=== PATIENT | female | born 1995 | race Caucasian/White ===

== ENCOUNTER 2023-07-19 20:39 | Inpatient (IN) | payer BC, SELFPAY ==
[2023-07-19] VITALS (7 sets, daily range): BP systolic 107–137; BP diastolic 61–94; PULSE 71–81; BMI 23.2
[2023-07-19 12:36] LABS: % Basophils 0.1 % (0-2); % Immature Granulocytes 0.1 % (0-0.5); % Lymphocytes 16.1 % (20.5-51.1); % Monocytes 5.1 % (1.7-9.3); % Neutrophils 78.6 % (42.2-75.2); Absolute Lymphocytes 1.3 10^3/uL (1.2-3.4); Absolute Monocytes 0.4 10^3/uL (0.1-0.6); Absolute Neutrophils 6.1 10^3/uL (1.4-6.5); Hematocrit 39.3 % (37.0-47.0); Hemoglobin 13.5 g/dL (12.0-16.0); Mean Corp Hgb Conc. 34.4 g/dL (33.0-37.0); Mean Corpuscular Hgb 29.8 pg (27.0-31.0); Mean Corpuscular Volume 86.8 fL (81.0-99.0); Mean Platelet Volume 10.7 fL (7.4-10.4); Nucleated Red Blood Cells % 0 %; Platelet Count 235 10^3/uL (130-400); Red Blood Cell Count 4.53 10^6/uL (4.20-5.40); Red Cell Dist. Width 12.7 % (11.5-14.5); White Blood Cell Count 7.8 10^3/uL (4.8-10.8)
[2023-07-19 12:47] LABS: ALT (SGPT) 26 U/L (0-35); AST (SGOT) 25 U/L (14-36); Albumin 4.3 g/dl (3.5-5.0); Alkaline Phosphatase 73 U/L (38-126); Blood Urea Nitrogen 10 mg/dl (7-17); Calcium 9.4 mg/dl (8.4-10.2); Carbon Dioxide 28 mmol/L (22-30); Chloride 106 mmol/L (98-107); Glucose 87 mg/dl (70-99); Sodium 138 mmol/L (135-145); Total Bilirubin 0.6 mg/dl (0.2-1.3); Total Protein 7.2 g/dl (6.3-8.2); eGFR > 60.00
[2023-07-19 15:10] LABS: HCG, Serum Qualitative Screen Negative
--- NOTE | 2023-07-19 15:17 | ED.GENMED ---
History of Present Illness
<Shayla Alcocer PA-C - Last Filed: 07/19/23 23:12>
General
Chief Complaint: Fainting/Passed Out
Source: patient
Exam Limitations: none
Time Seen by Provider: 07/19/23 14:56
Nursing documentation reviewed up to this point in time: agreed with
Travel History
Have you had any contact with someone who has COVID-19?: No
Do you have any symptoms of coronavirus? Fever > 100 degrees, chills, cough, shortness of breath, sore throat, loss of taste or smell, muscle aches, or headache?: No
History of Present Illness
History of Present Illness:
The patient is a 27 year old female with history of ADHD, anxiety presenting for evaluation of what she describes as near fainting episodes today. Patient states she was at work around 930 this morning when symptoms began. 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 These episodes have been associated with blurry vision and then prolonged weakness in her extremities following
episode. She denies any preceding chest pain, shortness of breath, nausea, vomiting, diaphoresis. She has had 4 more of these episodes since the first. She has never actually lost consciousness with any of these episodes. She denies any
numbness/tingling of body, stomach pain, cough. She has had no recent viral illnesses. She did have a positive monotest back in March 2023.
Her LMP was 2 weeks ago. No recent travel or surgeries.
She denies any personal or family history of cardiac disorders, seizures.
Past History
<Shayla Alcocer PA-C - Last Filed: 07/19/23 23:12>
Past History
ED Past Medical History: Psychiatric (Anxiety/depression)
ED Past Surgical History: None
Social History
Tobacco: Non-smoker
Alcohol: Occasional
Drug: None
Phy Exam
<Shayla Alcocer PA-C - Last Filed: 07/19/23 23:12>
Physical Exam
Physical Exam:
General: Tired, eyes closed in dark room on initial encounter and non-toxic
Vitals: Vital signs stable, afebrile
HEENT: Atraumatic, normocephalic; pupils equal round and reactive to light, extraocular muscles intact; protecting airway
Neck: appears supple
CV: Regular rate and rhythm, heart sounds normal; No evidence of cyanosis
Resp: No evidence of respiratory distress, lungs clear; no accessory muscle use
Abd: Soft, nontender, non-distended
Extremities: No deformities; weakness in b/l upper and lower extremities; sensation intact
Neuro: alert and oriented to person, place, time; speech normal
Psych: Normal affect
Skin: Intact, no rashes
Course
<Shayla Alcocer PA-C - Last Filed: 07/19/23 23:12>
Orders/Labs/Results
Orders:
Orders
07/19/23 Breakfast
Regular
At Your Request: Full Participation
07/19/23 12:16
Electrocardiogram (*1) Urgent
Reason for Study: Vertigo / Dizzy
07/19/23 12:17
EKG- Treatment ONCE
07/19/23 12:23
Complete Blood Count/With Diff Urgent
Comprehensive Metabolic Panel Urgent
Creatine Phosphokinase Urgent
Comment: CREATININE KINASE ADDED ON BY FLOOR 4PM 07-19-23
Folate Urgent
Comment: ADD ON
HCG, Serum Qualitative Screen Urgent
Comment: ADD ON
Magnesium Urgent
Comment: ADD ON
Phosphorus Urgent
Comment: ADD ON
TSH Reflex To Free T4 Urgent
Comment: ADD ON
Vitamin B12 Urgent
Comment: ADD ON
07/19/23 14:26
Add On- LAB Urgent
Tests Added?: hcg qual
07/19/23 15:35
Orthostatic VS- Treatment ONCE
07/19/23 15:54
0.9% Sodium Chloride 1000 ml [Nss] 1,000 ml IV BOLUS
07/19/23 16:03
Add On- LAB Urgent
Tests Added?: total creatinine kinase
07/19/23 16:26
COVID-19 Antigen Urgent
Source: Nasal Swab
Influenza A+B Rapid Molecular Urgent
WES Source: Nasal Swab
Specimen Description:
07/19/23 17:02
UA Reflex to Culture [Urinalysis Reflex To Culture] Urgent
Date Specimen was Collected: 07/19/23
Time Specimen was Collected: 16:58
Urine Drug Abuse Screen Urgent
Date Specimen was Collected: 07/19/23
Time Specimen was Collected: 16:58
07/19/23 18:04
Consult Neurology [NEUROLOGY CONSULT] Urgent
Consulting Provider: Corrina Hannon
Was physician already notified: Yes
07/19/23 19:58
Add On- LAB Routine
Tests Added?: urine drug screen, TSH w/Reflex, vitamin b12, folate
07/19/23 20:01
Admit/Transfer Patient As Directed
Co-Sign Provider:
Level of Care: Inpatient admission
Assign to:: Telemetry
Physician / Group: Lizbeth
Diagnosis: Hyper-Reflexia
Reason for Telemetry: Syncope
Date to Stop Telemetry: 07/21/23
Time to Stop Telemetry: 11:00
Reason for Hospitalization: Hyper-Reflexia
Expected length of stay greater than two midnights?: Yes
ELOS- Estimated Length of Stay in days: 3
I certify the patient meets the requirements for IP care: Yes
07/19/23 20:05
Code Status As Directed
Resuscitation Status: Full Code
07/19/23 20:21
Add On- LAB Routine
Tests Added?: magnesium, phosphorous
07/19/23 21:27
Acetaminophen [Tylenol] 650 mg PO Q4HPRN PRN
07/19/23 21:27
MR Cervical Spine Without Routine
Comment:
Reason For Exam: hyperreflexia
Recent pill cam endoscopy?: No
MRI Brain [MR Brain Without Contrast] Routine
Comment:
Reason For Exam: hyperreflexia
Recent pill cam endoscopy?: No
Activity As Directed
Activity Level: Out of Bed- Chair
With Assistance
Neurological Checks As Directed
Frequency: q8h
Pneumatic Compression Sleeves As Directed
Type: Knee high
Vital Signs As Directed
Frequency: Per unit guidelines
Ot Eval And Treat Routine
Pt Eval And Treat Routine
Activity Level: Out of Bed-Early Mobility
DX Deep Vein Thrombosis Video Routine
07/19/23 21:30
HydrOXYZINE [Atarax] 25 mg PO HSPRN PRN
07/20/23 08:00
Escitalopram Oxalate [Lexapro] 20 mg PO DAILY
Famotidine [Pepcid] 20 mg PO DAILY
dexmethylphenidate 0 mg PO DAILY
norgestimate-ethinyl estradiol 0 tablet PO DAILY
07/21/23 11:00
DC Protocol for Telemetry ONCE
07/22/23 11:00
DC Protocol for Telemetry ONCE
Abnormal Lab Results
07/19/23
12:23
MPV 10.7 H fL
(7.4-10.4)
Neutrophils % 78.6 H %
(42.2-75.2)
Lymphocytes % 16.1 L %
(20.5-51.1)
Vitamin B12 207 L pg/ml
(632-931)
07/19/23 12:23
07/19/23 12:23
Vital Signs
Initial and Last Documented VS:
Initial Vital Signs
Temp Pulse Resp BP Pulse Ox
98.9 F 93 17 133/81 99
07/19/23 12:16 07/19/23 12:16 07/19/23 12:16 07/19/23 12:16 07/19/23 12:16
Last Documented Vital Signs
Temp Pulse Resp BP Pulse Ox
98.1 F 71 18 129/81 98
07/19/23 21:41 07/19/23 21:41 07/19/23 21:41 07/19/23 21:41 07/19/23 22:21
<Stephany Castellanos MD - Last Filed: 07/19/23 15:58>
Orders/Labs/Results
Orders:
Orders
07/19/23 Breakfast
Regular
At Your Request: Full Participation
07/19/23 12:16
Electrocardiogram (*1) Urgent
Reason for Study: Vertigo / Dizzy
07/19/23 12:17
EKG- Treatment ONCE
07/19/23 12:23
Complete Blood Count/With Diff Urgent
Comprehensive Metabolic Panel Urgent
Creatine Phosphokinase Urgent
Comment: CREATININE KINASE ADDED ON BY FLOOR 4PM 07-19-23
Folate Urgent
Comment: ADD ON
HCG, Serum Qualitative Screen Urgent
Comment: ADD ON
Magnesium Urgent
Comment: ADD ON
Phosphorus Urgent
Comment: ADD ON
TSH Reflex To Free T4 Urgent
Comment: ADD ON
Vitamin B12 Urgent
Comment: ADD ON
07/19/23 14:26
Add On- LAB Urgent
Tests Added?: hcg qual
07/19/23 15:35
Orthostatic VS- Treatment ONCE
07/19/23 15:54
0.9% Sodium Chloride 1000 ml [Nss] 1,000 ml IV BOLUS
07/19/23 16:03
Add On- LAB Urgent
Tests Added?: total creatinine kinase
07/19/23 16:26
COVID-19 Antigen Urgent
Source: Nasal Swab
Influenza A+B Rapid Molecular Urgent
WES Source: Nasal Swab
Specimen Description:
07/19/23 17:02
UA Reflex to Culture [Urinalysis Reflex To Culture] Urgent
Date Specimen was Collected: 07/19/23
Time Specimen was Collected: 16:58
Urine Drug Abuse Screen Urgent
Date Specimen was Collected: 07/19/23
Time Specimen was Collected: 16:58
07/19/23 18:04
Consult Neurology [NEUROLOGY CONSULT] Urgent
Consulting Provider: Corrina Hannon
Was physician already notified: Yes
07/19/23 19:58
Add On- LAB Routine
Tests Added?: urine drug screen, TSH w/Reflex, vitamin b12, folate
07/19/23 20:01
Admit/Transfer Patient As Directed
Co-Sign Provider:
Level of Care: Inpatient admission
Assign to:: Telemetry
Physician / Group: Lizbeth
Diagnosis: Hyper-Reflexia
Reason for Telemetry: Syncope
Date to Stop Telemetry: 07/21/23
Time to Stop Telemetry: 11:00
Reason for Hospitalization: Hyper-Reflexia
Expected length of stay greater than two midnights?: Yes
ELOS- Estimated Length of Stay in days: 3
I certify the patient meets the requirements for IP care: Yes
07/19/23 20:05
Code Status As Directed
Resuscitation Status: Full Code
07/19/23 20:21
Add On- LAB Routine
Tests Added?: magnesium, phosphorous
07/19/23 21:27
Acetaminophen [Tylenol] 650 mg PO Q4HPRN PRN
02/14/24 21:27
MR Cervical Spine Without Routine
Comment:
Reason For Exam: hyperreflexia
Recent pill cam endoscopy?: No
MRI Brain [MR Brain Without Contrast] Routine
Comment:
Reason For Exam: hyperreflexia
Recent pill cam endoscopy?: No
Activity As Directed
Activity Level: Out of Bed- Chair
With Assistance
Neurological Checks As Directed
Frequency: q8h
Pneumatic Compression Sleeves As Directed
Type: Knee high
Vital Signs As Directed
Frequency: Per unit guidelines
Ot Eval And Treat Routine
Pt Eval And Treat Routine
Activity Level: Out of Bed-Early Mobility
DX Deep Vein Thrombosis Video Routine
07/19/23 21:30
HydrOXYZINE [Atarax] 25 mg PO HSPRN PRN
07/20/23 08:00
Escitalopram Oxalate [Lexapro] 20 mg PO DAILY
Famotidine [Pepcid] 20 mg PO DAILY
dexmethylphenidate 0 mg PO DAILY
norgestimate-ethinyl estradiol 0 tablet PO DAILY
07/21/23 11:00
DC Protocol for Telemetry ONCE
07/22/23 11:00
DC Protocol for Telemetry ONCE
Abnormal Lab Results
07/19/23
12:23
MPV 10.7 H fL
(7.4-10.4)
Neutrophils % 78.6 H %
(42.2-75.2)
Lymphocytes % 16.1 L %
(20.5-51.1)
Vitamin B12 207 L pg/ml
(480-121)
07/19/23 12:23
07/19/23 12:23
Vital Signs
Initial and Last Documented VS:
Initial Vital Signs
Temp Pulse Resp BP Pulse Ox
98.9 F 93 17 133/81 99
07/19/23 12:16 07/19/23 12:16 07/19/23 12:16 07/19/23 12:16 07/19/23 12:16
Last Documented Vital Signs
Temp Pulse Resp BP Pulse Ox
98.1 F 71 18 129/81 98
07/19/23 21:41 07/19/23 21:41 07/19/23 21:41 07/19/23 21:41 07/19/23 22:21
<Shayla Alcocer PA-C - Last Filed: 07/19/23 23:12>
MDM/Problems Addressed
Differential Diagnosis Includes:
dehydration, orthostatic hypotension, viral illness, cardiac arrhythmia, hypoglycemia, Guillain-Esquivel�, MS
MDM/Problems Addressed:
Patient is a 27-year-old female presenting to emergency department for evaluation of multiple near syncopal episodes earlier today. She denies any preceding chest pain, shortness of breath, nausea, vomiting, diaphoresis. Patient reporting feeling
very weak following episodes. She is hemodynamically stable on arrival. Physical exam as documented above. She is somewhat weak appearing. Heart rate normal, lungs clear. She does have significant weakness in bilateral upper and lower
extremities. She is alert and oriented, speech normal. Will check basic labs, urinalysis, orthostatics. Will check COVID and flu. Will give IV fluids. Will reassess
CBC and CMP without any clinically significant abnormalities. Urinalysis with no indication of infection. COVID-negative. Flu negative.
Patient remains significantly weak in upper and lower extremities following fluids. Given persistent weakness, will consult neurology. No concern for stroke but possible concern for Guillain-Esquivel� although she denies any recent virus/illnesses.
Neurology consulted who said not given bradycardia. She did find pathologic hyperreflexia and recommended admission for MRI brain and cervical spine. Patient admitted to hospitalist for further evaluation and MRI.
Chronic conditions affecting care:
Anxiety, ADHD
Acute Exacerbation and/or Progression of Chronic Illness:
Weakness, hyperreflexia, near syncope
<Shayla Alcocer PA-C - Last Filed: 07/19/23 23:12>
*Pulse Oximetry
Patient hypoxic: no
*EKG
Interpreted by ED Provider?: Yes
EKG Intrepretation Date: 07/19/23
Interpretation: normal
Comparison EKG: no changes
Heart Rate: 85
Rate: normal
Rhythm: sinus
[place]: normal axis
Interval: normal interval
QRS Pattern: normal QRS
Ischemia: no ischemia
*Warehouse Production Worker Interpretation
Rate: normal
Interpretation: normal
Heart Rate: 76
Rhythm: sinus
*Critical Care Note
Total Time (30-74mins, 75-104mins- exclusive of procedures): Not Applicable
ED Attending Note
<Shayla Alcocer PA-C - Last Filed: 07/19/23 23:12>
-
Portions of this chart may have been created with voice recognition software.� Occasional wrong word or��sound alike� substitutions may have occurred due to the inherent limitations of voice recognition software.
<Stephany Castellanos MD - Last Filed: 07/19/23 15:58>
ED Attending Note
Patient seen and examined by attending physician: Yes
I performed the substantive portion of visit, reviewed & personally made and approve the management plan that is documented in note by myself or DHARA.: Yes
ED Attending Note:
Patient reports a near syncopal episode earlier today and states she still feels very lightheaded. In addition to the lightheadedness, patient describes feeling as though her brain is not connected to her arms and legs. She reports feeling weak in
arms and legs. When patient initially tried to lift her legs, she had some drift, however, after some discussion, patient was able to lift both legs up against gravity for more than 10 seconds. Patient was able to stand up but felt lightheaded so
I sat her back down. Patient does not appear toxic and has a minimal headache. She has no meningismus. Orthostatics will be done to assess if patient needs IV fluids. Also in consideration is Guillain-Esquivel�, however, patient has had no viral
illnesses.
Discharge Plan
Departure
Patient Disposition: Admit
Date of Disposition: 07/19/23
Time of Disposition: 19:40
Presentation/result/management discussed w/ accepting MD/DO: Hospitalist
Discharge Problem:
Hyperreflexia, Weakness
Interventions
Interventions:
*Risk Screen - Suicide Last Done: 07/19/23 22:05
*General Assessment Last Done: 07/19/23 14:27
*Neglect/Abuse Screening Last Done: 07/19/23 14:27
ED- Fall Risk Assessment Last Done: 07/19/23 14:27
*ED COVID-19 Vaccine History Last Done: 07/19/23 21:54
*Nursing Disposition Last Done: 07/19/23 21:23
ED- Cardiac Assessment Last Done: 07/19/23 14:27
ED- Neurological Assessment Last Done: 07/19/23 14:27
Discharge Date and Time
Discharge Date/Time: 07/19/23 21:23
[2023-07-19] MEDS: NSS 1000 IV (16:02)
[2023-07-19 16:47] LABS: COVID-19 Antigen Negative (Negative)
[2023-07-19 16:55] LABS: Creatine Phosphokinase 86 U/L (30-135)
[2023-07-19 17:07] LABS: Urine Albumin Negative (Neg - Trace); Urine Bilirubin Negative (Negative); Urine Character Clear (Clear); Urine Color Yellow; Urine Glucose Negative (Negative); Urine Ketone Negative (Negative); Urine Leukocyte Negative (Negative); Urine Nitrite Negative (Negative); Urine Occult Blood Negative (Negative); Urine Specific Gravity 1.015 (<1.030); Urine Urobilinogen Negative (Neg - 1+)
--- NOTE | 2023-07-19 18:34 | CON.NEURO ---
Consultation
Order
Date of Consultation: 07/19/23
Requesting Provider: Shayla Tsai PA-C
Reason for Consult: GBS
CC: Spells
HPI: This is a 27-year-old right-handed woman who presented to [facility] on 07/19/[facility]23 with multiple complaints. According to the patient she intermittent spells of sensation as her 'body is disconnected from my brain', 'I feel weak
', 'dizzy', 'emesis' ', I can do anything', 'cannot move'. She had 6 or 7 symptoms lasting from 5 to 10 minutes since the morning.
No reports of headache, change in vision, speech, ear pain, language, sensory deficits, falls.
ER VS: 133/81, 93, 37.2C
EKG: NSR, �QTc Int : 459 ms.
PDMP:Dexmethylphenidate Er 20 Mg 30 tabs filled in on 05/19/2023, 06/21/2023.
Labs: Normal glucose, sodium, creatinine, WBCs, CK, negative beta-hCG, SARS Cov 2 antigen, Negative for Influenza A & B, normal urinalysis
CXR-normal
PMH: Prematurity, ADHD, MDD, TALITA
PSH:none
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
FH: No family history of demyelinating disease
All:NKDA
ROS:Constitutional: Negative. Negative for chills, fever and unexpected weight change.
HENT: Negative for ear pain, hearing loss, tinnitus and trouble swallowing.
Eyes: Negative. Negative for photophobia, pain and visual disturbance.
Respiratory: Negative for cough, choking and shortness of breath.
Cardiovascular: Negative for chest pain, palpitations and leg swelling.
Gastrointestinal: Negative for abdominal pain and vomiting.
Endocrine: Negative. Negative for cold intolerance.
Genitourinary: Negative for dysuria, flank pain and urgency.
Musculoskeletal: Negative for back pain, gait problem, neck pain and neck stiffness.
Skin: Negative for rash.
Allergic/Immunologic: Negative. Negative for immunocompromised state.
Neurological: Positive for intermittent vertigo, spells
Psychiatric/Behavioral: Positive for intermittent
General: Well developed. In no acute distress.
Cardio: Regular rate and rhythm without murmur. Extremities are without cyanosis or edema.
Neuro:
Mental Status: Alert, oriented to person, place, and date. Normal attention and recall. Good fund of knowledge. Follows complex requests across the midline. Comprehension, naming, and repetition intact. Immediate and delayed recall 3/3.
Cranial Nerves: . Pupils are equally round and reactive to light. EOMs full. Visual [place] full to confrontation. No ptosis. No nystagmus. V1-V3 intact to light touch and pinprick bilaterally, symmetric. Face symmetric. Normal hearing AU.
The palate elevated well. SCMs and traps 5/5. Tongue midline. No dysarthria.
Motor: Normal bulk and tone. No pronator or arm drift. Strength 5/5 throughout. No clonus.
Reflexes: 3+ throughout the upper extremities and knees. 4/2 in AJs. Chery's-positive bilaterally. Jaw jerk-equivocal. Bilateral plantar responses withdrawal bilaterally.
Sensory: Normal pinprick, vibration and JPS.
Coordination: No dysmetria or tremor.
Gait: Limited exam due to IV therapy, able to jump on each foot.
Assessment and Plan:
I. Recurrent spell.
II. Pathological hyperreflexia
III. TALITA
IV. ADHD
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
-Please obtain urine tox, vitamin B12, TFTs
-Brain and C-spine MRI given hyperreflexia.
-Case was discussed with patient's mother
I personally reviewed all radiology and labs along with past medical records pertinent to current medical problems.
Thank you for allowing us to participate in the care of this patient. We will continue to follow. Please do not hesitate to contact us with any questions or concerns.
Subjective/Objective
Subjective Data
Date of Service: July 19, 2023
Objective Data
Vital Signs
Temp Pulse Resp BP Pulse Ox
37.2 C 83 17 129/80 100
07/19/23 12:16 07/19/23 14:27 07/19/23 12:16 07/19/23 14:27 07/19/23 14:27
Lab Results
07/19/23 12:23
07/19/23 12:23
Sodium 138 mmol/L (135-145) 07/19/23 12:23
Potassium 4.0 mmol/L (3.5-5.1) 07/19/23 12:23
BUN 10 mg/dl (7-17) 07/19/23 12:23
Glucose 87 mg/dl (70-99) 07/19/23 12:23
Calcium 9.4 mg/dl (8.4-10.2) 07/19/23 12:23
Patient Allergies
latex Allergy (Verified 07/19/23 12:15)
Rash
Medications
-
Home Medications
Medication Instructions Recorded
ondansetron HCl 4 mg tablet 4 mg PO Q6H PRN nausea and 07/07/22
vomiting #14 tabs
Vital Signs and Labs
-
Vital Signs and Labs:
Vital Signs
Temp Pulse Resp BP Pulse Ox
37.2 C 83 17 129/80 100
07/19/23 12:16 07/19/23 14:27 07/19/23 12:16 07/19/23 14:27 07/19/23 14:27
Lab Results
07/19/23 12:23
07/19/23 12:23
Sodium 138 mmol/L (135-145) 07/19/23 12:23
Potassium 4.0 mmol/L (3.5-5.1) 07/19/23 12:23
BUN 10 mg/dl (7-17) 07/19/23 12:23
Glucose 87 mg/dl (70-99) 07/19/23 12:23
Calcium 9.4 mg/dl (8.4-10.2) 07/19/23 12:23
Home Medications
-
Home Medications
ondansetron HCl 4 mg tablet 4 mg PO Q6H PRN nausea and vomiting #14 tabs 07/07/22
--- NOTE | 2023-07-19 20:07 | HPS.HSE ---
Addendum entered and electronically signed by Rebecca Nieves MD 07/19/23 23:21:
vitamin B12 207
-will replete and order IF ab tomorrow AM
Addendum entered and electronically signed by Rebecca Nieves MD 07/19/23 20:20:
I saw and examined the patient.
The INFRASTRUCTURE DEVELOPER's note was reviewed and I agree with the note.
Comment:
Ms. Selina Adair is a 27 yo woman without significant past medical history who presents to the ER after near fainting episodes stating 'my brain was disconnected from my body.'
Triage VS: T 98.9, P 9, RR 17, BP 133/81, SpO2 99%
LABS: WBC 7.8, Hg 13.5, PLT 235, Na 138, K+ 4.0, Cl 106, CO2 28 BUN 10, Cr 0.8, liver enzymes WNL, HCG neg
EKG: NSR @ 85, no significnt ST/T wave changes
Exam: awake, alert, in no acute distress. CV: S1, S2, RRR; Chest clear, abdomen benign. no LE swelling; Neuro: TRAVIS, no facial asymmetry; 5/5 strength upper and lower extremities, hyperreflexia
Patient will be admitted to telemetry for further work-up of near fainting/disassociation episodes with clinical exam finding of hyperreflexia. Will obtain Utox, Vitamin B12, TFT's, Brain and c-spine MRI ordered.
Original Note:
Family Physician
-
Family Physician: Jonah Randolph MD
Chief Complaint
-
Weakness
History of Present Illness
Patient is a 27 y/o female past medical history of anxiety, depression and ADHD who presents with weakness and feeling faint. Patient states she woke this morning feeling tired. Around 9:30am she starting feeling dizzy, and felt like her 'body was
disconnected'. She states symptoms persisted which prompted her to come to the emergency department for evaluation. She denies any prior episode of similar symptoms.
Medical History
Past Medical History
Past Medical History: Reports Other
Additional Past Medical History:
Generalized Anxiety Disorder
Major Depressive Disorder
Attention Deficit Disorder
Past Surgical History: Reports None
Social History
Tobacco: Non-smoker
Alcohol: Occasional
Drug: Marijuana (Daily)
Family History
Family History: Not pertinent
Allergies / Home Medications
Allergies reflects when Allergies were last updated in [email or web address].
Home Medications with original date entered in [email or web address]
Allergy/Medication List:
Allergies
Allergy/AdvReac Type Severity Reaction Status Date / Time
latex Allergy Rash Verified 07/19/23 12:15
Home Medications
dexmethylphenidate 20 mg capsule,extended release [id number] 20 mg PO DAILY 07/19/23
escitalopram oxalate 20 mg tablet 20 mg PO DAILY 07/19/23
famotidine 20 mg tablet 20 mg PO DAILY 07/19/23
hydroxyzine pamoate 25 mg capsule 25 mg PO HS PRN insomnia 07/19/23
norgestimate-ethinyl estradiol 0.18 mg/0.215mg/0.25mg-35 mcg(28)tablet 1 tab PO DAILY 07/19/23
ondansetron HCl 8 mg tablet 8 mg PO Q8H PRN nausea/vomiting 07/19/23
Review of Systems
-
A 12 point ROS was completed and negative except as noted: Yes
Constitutional: Denies Fever or Chills
Respiratory: Denies Cough or Trouble Breathing
Cardiac: Denies Chest Pain or Palpitations
Abdomen/GI: Reports Nausea, Diarrhea and Other (Patient reports GI symptoms since last summer, and she is following with a GI physician not associated with )
Physical Exam
Vital Signs
Vital Signs
Temp Pulse Resp BP Pulse Ox
98.9 F 68 16 127/84 100
07/19/23 12:16 07/19/23 19:17 07/19/23 19:17 07/19/23 19:17 07/19/23 19:17
Physical Exam
General: Comfortable and Conversant
HEENT: Anicteric and Moist mucous membranes
Respiratory: Clear and Non Labored Respirations
Cardiac: S1/S2 and Regular Rhythm
GI: Soft and Non Tender
Musculoskeletal: No Clubbing, No Cyanosis and No Edema
Skin: Warm and Dry
Neuro: Awake, Alert, Oriented, No Motor Deficits and Other (+Hyperreflexia )
Laboratory Results
-
07/19/23 12:23
07/19/23 12:23
Laboratory Results
Total Bilirubin 0.6 mg/dl (0.2-1.3) 07/19/23 12:23
AST 25 U/L (14-36) 07/19/23 12:23
ALT 26 U/L (0-35) 07/19/23 12:23
Alkaline Phosphatase 73 U/L (38-126) 07/19/23 12:23
Data Reviewed
-
Lab Data: Labs Reviewed by me
Impression/Plan
-
Hyperreflexia
-Appreciate Neurology consultation
-Check Brain and Cervical Spine MRIs
-Monitor neurological checks
Anxiety/Depression/Insomnia
-Continue escitalopram, and hydroxyzine
DVT proph: SCDs
Code Status: Full Code
[2023-07-19 20:24] LABS: Amphetamines Negative (Negative); Barbiturates Negative (Negative); Benzodiazepines Negative (Negative); Buprenorphine Negative (Negative); Cocaine Negative (Negative); Marijuana Negative (Negative); Methadone Negative (Negative); Methamphetamines Negative (Negative); Opiates Negative (Negative); Phencyclidine Negative (Negative); Tricyclic Antidepressants Negative (Negative)
[2023-07-19 20:38] LABS: Magnesium 2.1 mg/dl (1.6-2.3)
[2023-07-19 20:51] LABS: TSH Reflex To Free T4 0.49 uIU/ml (0.47-4.68)
[2023-07-19 21:26] LABS: Folate 7.4 ng/ml (2.76-20); Vitamin B12 207 pg/ml (239-931)
[2023-07-19] MEDS: CYANOCOBALAMIN 1000 MCG IM (23:34)
[2023-07-20] VITALS (8 sets, daily range): BP systolic 106–117; BP diastolic 60–74; PULSE 63–76
[2023-07-20] MEDS: PEPCID 20 MG PO (09:05)
[2023-07-20] MEDS: LEXAPRO 20 MG PO (09:05)
--- NOTE | 2023-07-20 09:09 | W.PN.HOSP.TC ---
Addendum entered and electronically signed by Jayde Sunshine MD 07/20/23 09:26:
Intrinsic factor Ab was sent for B12 deficiency, can follow the result outpt
Original Note:
Today's Communication/Plan
-
see A/P
Assessment / Plan
Assessment / Plan
HPI: Patient is a 27 y/o female past medical history of anxiety, depression and ADHD who presented with weakness and feeling faint.� Patient stated that she woke in the morning feeling tired.�Around 9:30am she started feeling dizzy, and felt like
her 'body was disconnected'.� She stateed symptoms persisted which prompted her to come to the emergency department for evaluation. She denies any prior episode of similar symptoms.
A/P:
# Hyperreflexia
Check MRI Brain and Cervical Spine
Monitor neurological checks
UDS negative (although pt admits to smoking marijuana, last smoked 2 days [employer], no prior similar symptoms with smoking marijauna)
UA clean
TSH 0.49
B12 level low, started repletion
Appreciate Neurology consultation
PT OT eval
# Anxiety/Depression/Insomnia
Continue escitalopram, and hydroxyzine
DVT proph: SCDs
Code Status: Full Code
Anticipated Discharge: Within 24 hours
Subjective/Interval History
-
Date of Service: July 20, 2023
Objective Data
-
Vital Signs:
Vital Signs
Temp Pulse Resp BP Pulse Ox
36.9 C 74 16 112/68 100
07/20/23 07:06 07/20/23 07:06 07/20/23 07:06 07/20/23 07:06 07/20/23 07:06
I&O
07/19/23 07/20/23 07/21/23
06:59 06:59 06:59
Intake Total 400 / 400
Balance 400 / 400
Review of Systems
-
All other systems: Reviewed and negative
Physical Exam
-
General: Well Developed, Well Nourished, No Apparent Distress, Comfortable and Conversant; Negative Respiratory Distress
HEENT: Normocephalic, Atraumatic, Nose Appears Normal and Ears Appear Normal; Negative Oxygen
Respiratory: Clear to Auscultation and Non Labored Respirations; Negative Accessory Resp Muscle Use
Cardiac: Regular Rhythm and S1/S2
GI: Soft, Nontender, Nondistended and Normal Bowel Sounds
Skin: Warm and Dry
Neuro: Awake, Alert, Oriented and AO x 3
Psych: Calm and Intact Judgement/Insight
Data Reviewed
-
Labs: Labs Reviewed by me
--- NOTE | 2023-07-20 09:32 | W.PN.NEURO.1 ---
Today's Communication / Plan
-
.
Subjective/Objective
Subjective Data
Date of Service: July 20, 2023
Ms. Adair reports a mild holocephalic nonpositional headache with no associated visual deficits. She reportedly has a history of episodic migraine with aura controlled with over the counter NSAID. No reports of recurrent spells. 'I feel
stronger '
Vit B12-207, normal TSH, ua tox-neg.
PMH: prematurity, migraine with aura, ADHD, MDD, TALITA
PSH: none
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
FH: No family history of demyelinating disease
All:NKDA
ROS:Constitutional: Negative. Negative for chills, fever and unexpected weight change.
HENT: Negative for ear pain, hearing loss, tinnitus and trouble swallowing.
Eyes: Negative. Negative for photophobia, pain and visual disturbance.
Respiratory: Negative for cough, choking and shortness of breath.
Cardiovascular: Negative for chest pain, palpitations and leg swelling.
Gastrointestinal: Negative for abdominal pain and vomiting.
Endocrine: Negative. Negative for cold intolerance.
Genitourinary: Negative for dysuria, flank pain and urgency.
Musculoskeletal: Negative for back pain, gait problem, neck pain and neck stiffness.
Skin: Negative for rash.
Allergic/Immunologic: Negative. Negative for immunocompromised state.
Neurological: Positive for intermittent vertigo, spells, headache
Psychiatric/Behavioral: Positive for intermittent
�
�
General: Well developed. In no acute distress.
Cardio: Regular rate and rhythm without murmur. Extremities are without cyanosis or edema.
Neuro:
Mental Status: Alert, oriented to person, place, and date.� Normal attention and recall.� Good fund of knowledge. Follows complex requests across the midline.� Comprehension, naming, and repetition intact.� Immediate and delayed recall 3/3.
Cranial Nerves: . Pupils are equally round and reactive to light.� EOMs full.� Visual walton full to confrontation.� No ptosis.� No nystagmus.� V1-V3 intact to light touch and pinprick bilaterally, symmetric.� Face symmetric.� Normal hearing AU.�
The palate elevated well.� SCMs and traps 5/5.� Tongue midline.� No dysarthria.
Motor:� � � � Normal bulk and tone.� No pronator or arm drift.� Strength 5/5 throughout. No clonus.
Reflexes: � � � � � � 3+ throughout the upper extremities and knees.� 4/2 in AJs. Chery's-positive bilaterally.� Jaw jerk-equivocal. Bilateral plantar responses withdrawal bilaterally.
Sensory: � � Normal pinprick, vibration and JPS.
Coordination: No dysmetria or tremor.�
Gait: � � � Limited exam due to IV therapy, able to jump on each foot.
Assessment and Plan:
�
�I.� Recurrent spell.
II. Pathological hyperreflexia
III. TALITA
IV. ADHD
-secured entrance monitor
-Ibuprofen 200mg PRN
-Please check MMA, HC
-Brain and C-spine MRI wo talita
�
I personally reviewed all radiology and labs along with past medical records pertinent to current medical problems.
�
Thank you for allowing us to participate in the care of this patient. We will continue to follow. Please do not hesitate to contact us with any questions or concern
Objective Data
Vital Signs
Temp Pulse Resp BP Pulse Ox
36.9 C 74 16 112/68 100
07/20/23 07:06 07/20/23 07:06 07/20/23 07:06 07/20/23 07:06 07/20/23 07:06
Lab Results
07/19/23 12:23
07/19/23 12:23
Sodium 138 mmol/L (135-145) 07/19/23 12:23
Potassium 4.0 mmol/L (3.5-5.1) 07/19/23 12:23
BUN 10 mg/dl (7-17) 07/19/23 12:23
Glucose 87 mg/dl (70-99) 07/19/23 12:23
Calcium 9.4 mg/dl (8.4-10.2) 07/19/23 12:23
Phosphorus 3.0 mg/dl (2.5-4.5) 07/19/23 12:23
Vitamin B12 207 pg/ml (239-931) L 07/19/23 12:23
Ur Buprenorphine Negative (Negative) 07/19/23 17:02
Patient Allergies
latex Allergy (Verified 07/19/23 12:15)
Rash
--- NOTE | 2023-07-20 09:49 | CM ---
Reviewed the chart notes and spoke with the patient at the bedside. The patient resides with her significant other in a two story home with two steps to enter. The patient reports no DME/VN/SNF in the past. The patient confirmed her pharmacy of
choice [facility]. The patient anticipates being discharged to home with no additional needs being identified at this time. CM continues to be available to patient/family and is monitoring medical plan for needs at
discharge.
Plan: Discharge to home when medically stable.
[2023-07-20] MEDS: VITAMIN B-12 1000 MCG PO (11:15)
--- NOTE | 2023-07-20 12:28 | PTOTSP ---
pt currently demonstrates ability to complete simple ADLs, functional transfers, ambulation with supervision to no assistance. no acute OT needs identified at this time, will sign off.
[2023-07-21 03:30] VITALS: BP 101/67
[2023-07-21 06:32] LABS: Hematocrit 37.3 % (37.0-47.0); Hemoglobin 12.8 g/dL (12.0-16.0); Mean Corp Hgb Conc. 34.3 g/dL (33.0-37.0); Mean Corpuscular Hgb 29.9 pg (27.0-31.0); Mean Corpuscular Volume 87.1 fL (81.0-99.0); Mean Platelet Volume 11.1 fL (7.4-10.4); Platelet Count 214 10^3/uL (130-400); Red Blood Cell Count 4.28 10^6/uL (4.20-5.40); Red Cell Dist. Width 12.7 % (11.5-14.5); White Blood Cell Count 6.8 10^3/uL (4.8-10.8)
[2023-07-21 06:59] LABS: Blood Urea Nitrogen 14 mg/dl (7-17); Calcium 8.9 mg/dl (8.4-10.2); Carbon Dioxide 27 mmol/L (22-30); Chloride 100 mmol/L (98-107); Estimated Creatinine Clearance 74 ml/min; Glucose 93 mg/dl (70-99); Potassium 3.9 mmol/L (3.5-5.1); Sodium 135 mmol/L (135-145); eGFR > 60.00
[2023-07-21 07:55] VITALS: BP 118/75
[2023-07-21 08:17] VITALS: BP 118/75
[2023-07-21] MEDS: LEXAPRO 20 MG PO (08:33)
[2023-07-21] MEDS: PEPCID 20 MG PO (08:33)
[2023-07-21] MEDS: VITAMIN B-12 1000 MCG PO (08:33)
--- NOTE | 2023-07-21 08:33 | W.PN.NEURO.1 ---
Today's Communication / Plan
-
.
Neuro Assessment/Plan
Assessment
This is a 27-year-old right-handed female who presented to on 07/19/2023 with multiple complaints.� According to the patient she intermittent spells of sensation as her 'body is disconnected from my brain', 'I feel weak ', 'dizzy', 'emesis' ', I
can do anything', 'cannot move'.� She had 6 or 7 symptoms lasting from 5 to 10 minutes since the morning.
-MRI Brain 07/20/23: No acute intracranial abnormality.
-MRI Cervical Spine 07/20/23: Multilevel cervical disc protrusions. No significant spinal canal or neuroforaminal stenosis. No suspicious signal alteration in the cervical spinal cord.
I.� Recurrent spell.
II. Pathological hyperreflexia
III. TALITA
IV. ADHD
Plan
-Vitamin B12 level low at 207. Continue newly initiated cyanocobalamin 1000mcg PO daily.
-Consider outpatient cardiac monitoring
-Ibuprofen 200mg PRN headache
-Do not see a role for further neurological imaging at this time.
-Will sign off. Patient can follow-up with Neurology as an outpatient at least once and as-needed. May see the [facility] or one of the physicians.
Subjective/Objective
Subjective Data
Date of Service: July 21, 2023
No acute events overnight. Patient reports feeling improved/almost back to her baseline. She reports mild dizziness intermittently and fatigue. She denies any headache, vision changes, speech/swallow difficulty, nausea, numbness, weakness, chest
pain, palpitations, and shortness of breath.
Objective Data
Vital Signs
Temp Pulse Resp BP Pulse Ox
97.8 F 75 18 118/75 99
07/21/23 07:55 07/21/23 07:55 07/21/23 07:55 07/21/23 07:55 07/21/23 07:55
Lab Results
07/21/23 04:36
07/21/23 04:36
Sodium 135 mmol/L (135-145) 07/21/23 04:36
Potassium 3.9 mmol/L (3.5-5.1) 07/21/23 04:36
BUN 14 mg/dl (7-17) 07/21/23 04:36
Glucose 93 mg/dl (70-99) 07/21/23 04:36
Calcium 8.9 mg/dl (8.4-10.2) 07/21/23 04:36
Phosphorus 3.0 mg/dl (2.5-4.5) 07/19/23 12:23
Vitamin B12 207 pg/ml (239-931) L 07/19/23 12:23
Ur Buprenorphine Negative (Negative) 07/19/23 17:02
Patient Allergies
latex Allergy (Verified 07/19/23 12:15)
Rash
Review of Systems
-
History Source: Patient
Constitutional: Fatigue
EENT: Negative Blurry Vision, Decreased Vision or Swallowing Difficulty
Respiratory: Negative Trouble Breathing
Cardiac: Negative Chest Pain or Palpitations
Abdomen/GI: Negative Nausea or Vomiting
Genitourinary: Negative Difficulty Voiding
Neuro: Dizzy; Negative Headache, Weakness, Numbness, Ataxia, Tremors or Speech Problem
Physical Exam
-
General: Well Developed, Well Nourished and No Apparent Distress
Eyes: No Ptosis and PERRLA
HEENT: Normocephalic and Atraumatic
Neck: Full Range of Motion
Respiratory: No Dyspnea
GI: Non-distended
Extremities: No Clubbing, No Cyanosis and No Edema
Psych: Unremarkable
Extended Neurological Exam
Mood & Affect: Mood Unremarkable and Affect Unremarkable
Attention Span & Concentration: Awake, Alert and Interactive
Memory: Unremarkable (AAOx3) and Able to Recall
Tremor: Hand Tremor Absent
Involuntary Movement: None
Speech: Quality Unremarkable, Quantity Unremarkable and Rate of Production Unremarkable
Cranial Nerve II: Left Eye: Pupillary Reactivity Unremarkable, Pupillary Size Unremarkable and Visual Oakley Intact
Cranial Nerve II: Right Eye: Pupillary Reactivity Unremarkable, Pupillary Size Unremarkable and Visual Oakley Intact
Cranial Nerves III, IV, : Extraocular Movement: Extraocular Movement Full in all Directions
Cranial Nerve V: Facial Sensation: Intact to Light Touch
Cranial Nerve VII: Facial Symmetry: Normal Facial Symmetry
Cranial Nerve VIII: Hearing: Unremarkable Hearing to Normal Conversational Volume
Cranial Nerves IX, X: Palate Movement: Palate Elevation Symmetric
Cranial Nerve XI: Shoulder Shrug: Unremarkable
Cranial Nerve XII: Tongue Protusion: Midline
Muscle Strength, Overall: Full Throughout
Pronator Drift: No Drift in Upper Extremities and No Drift in Lower Extremities
Deep Tendon Reflexes: Clonus (three beats of clonus L Achilles, 1 beat R Achilles), 3+ (bilateral patellar and Achilles) and Otherwise Unremarkable
Cold Sensation: Unremarkable
Vibration Sensation: Unremarkable
Touch Sensation: Unremarkable
Coordination: [id number] Testing Unremarkable
Babinski Sign: Absent Bilaterally
Gait & Station: Up from Seated Without Problem
Data Reviewed
-
MRI Head: Report Reviewed and Image Reviewed
MRI Cervical Spine: Report Reviewed and Image Reviewed
Orthostatic Testing: Report Reviewed
Labs: Report Reviewed
Reviewed with: Physician and Patient
Medications
-
Active Medications
Generic Name Dose Route Start Last Admin
Trade Name Freq PRN Reason Stop Dose Admin
Acetaminophen 650 mg 07/19/23 21:27
Acetaminophen 325 Mg Tablet PO 08/16/23 21:26
Q4HPRN PRN
mild pain/ fever>100.5F
Cyanocobalamin 1,000 mcg 07/20/23 10:00 07/21/23 08:33
Cyanocobalamin 1,000 Mcg Tablet PO 08/17/23 09:59 1,000 mcg
DAILY LUIS ALFREDO Administration
Escitalopram Oxalate 20 mg 07/20/23 08:00 07/21/23 08:33
Escitalopram 20 Mg Tablet PO 08/17/23 07:59 20 mg
DAILY LUIS ALFREDO Administration
Famotidine 20 mg 07/20/23 08:00 07/21/23 08:33
Famotidine 20 Mg Tablet PO 08/17/23 07:59 20 mg
DAILY LUIS ALFREDO Administration
Hydroxyzine HCl 25 mg 07/19/23 21:30
Hydroxyzine 25 Mg Tablet PO 08/16/23 21:29
HSPRN PRN
insomnia
Dexmethylphenidate 0 mg 07/20/23 08:00
20 Mg Er Po Daily PO 08/17/23 07:59
DAILY LUIS ALFREDO
Norgestimate-Ethinyl 0 tablet 07/20/23 08:00
Estradiol 0.18/0. PO 08/17/23 07:59
215/0.25 Mg-35 Mcg ( DAILY LUIS ALFREDO
28) T
Sodium Chloride 0 flush 07/19/23 23:00
Sodium Chloride 0.9% (Flush) Syringe IV 08/16/23 22:59
PER PROTOCOL LUIS ALFREDO
Home Medications
Medication Instructions Recorded
dexmethylphenidate 20 mg 20 mg PO DAILY ADHD 07/19/23
capsule,extended release
[id number]
escitalopram oxalate 20 mg tablet 20 mg PO DAILY Depression 07/19/23
famotidine 20 mg tablet 20 mg PO DAILY Gastrointestinal 07/19/23
Issue
hydroxyzine pamoate 25 mg capsule 25 mg PO HS PRN insomnia 07/19/23
norgestimate-ethinyl estradiol 1 tab PO DAILY Hormonal Agent 07/19/23
0.18 mg/0.215mg/0.25mg-35
mcg(28)tablet
ondansetron HCl 8 mg tablet 8 mg PO Q8H PRN nausea/vomiting 07/19/23
cyanocobalamin (vitamin B-12) 1,000 mcg PO DAILY #30 tabs 07/21/23
1,000 mcg tablet
--- NOTE | 2023-07-21 10:41 | W.PN.HOSP.TC ---
Today's Communication/Plan
-
Monitor vital signs see plan
Discharge today
Neurology follow-up outpatient
Time of discharge 36 minutes
Assessment / Plan
Assessment / Plan
HPI: Patient is a 27 y/o female past medical history of anxiety, depression and ADHD who presented with weakness and feeling faint.� Patient stated that she woke in the morning feeling tired.�Around 9:30am she started feeling dizzy, and felt like
her 'body was disconnected'.� She stateed symptoms persisted which prompted her to come to the emergency department for evaluation. She denies any prior episode of similar symptoms.
A/P:
# Hyperreflexia
Check MRI Brain and Cervical Spin; MRI brain without any acute abnormality. MRI C-spine with multiple level disc protrusion. No spinal canal stenosis.
Monitor neurological checks
UDS negative (although pt admits to smoking marijuana, last smoked 2 days [employer], no prior similar symptoms with smoking marijauna)
UA clean
TSH 0.49
B12 level low, started repletion; intrinsic factor antibody was sent, follow-up results outpatient
Appreciate Neurology consultation
PT OT eval
# Anxiety/Depression/Insomnia
Continue escitalopram, and hydroxyzine
DVT proph: SCDs
Code Status: Full Code
General: Well Developed, Well Nourished, No Apparent Distress, Comfortable and Conversant; Negative Respiratory Distress
HEENT: Normocephalic, Atraumatic, Nose Appears Normal and Ears Appear Normal; Negative Oxygen
Respiratory: Clear to Auscultation and Non Labored Respirations; Negative Accessory Resp Muscle Use
Cardiac: Regular Rhythm and S1/S2
GI: Soft, Nontender, Nondistended and Normal Bowel Sounds
Skin: Warm and Dry
Neuro: Awake, Alert, Oriented and AO x 3
Psych: Calm and Intact Judgement/Insight
Anticipated Discharge: Today
Subjective/Interval History
-
Date of Service: July 21, 2023
Denies any numbness
Objective Data
-
Labs:
Laboratory Results
07/21/23
04:36
WBC 6.8
Hgb 12.8
Hct 37.3
Plt Count 214
Sodium 135
Potassium 3.9
Chloride 100
Carbon Dioxide 27
BUN 14
Creatinine 0.9
Glucose 93
Calcium 8.9
Vital Signs:
Vital Signs
Temp Pulse Resp BP Pulse Ox
97.8 F 75 18 118/75 99
07/21/23 07:55 07/21/23 07:55 07/21/23 07:55 07/21/23 07:55 07/21/23 07:55
I&O
07/20/23 07/21/23 07/22/23
06:59 06:59 06:59
Intake Total 400 / 400 1200 / 1200
Balance 400 / 400 1200 / 1200
--- NOTE | 2023-07-21 10:46 | W.DCSUMMARY ---
Discharge Summary
Discharge Data
Date of Admission: 07/19/23
Date of Discharge: 07/21/23
-
Pending Results: Yes
Hospital Course
27-year-old female with past medical history of anxiety, depression, ADHD came to the hospital with generalized weakness and hyperreflexia. Patient was seen by neurology throughout hospitalization. Patient underwent MRI of the brain and cervical
spine MRI. MRI of the brain did not show any acute abnormality. MRI of the C-spine was consistent with multiple level disc protrusion however there was no spinal stenosis. Patient vitamin B12 was also low so she was started on vitamin B12.
Intrinsic factor antibody was sent however was still pending prior to the discharge. Patient was evaluated by physical therapy who recommended home as her disposition. Once patient symptoms improved, she was then discharged home with close
follow-up with all her physicians outpatient.
Discharge Plan
-
Patient Disposition: Home (Routine Discharge)
Discharge Diagnosis/Procedures: Hyperreflexia
Denies anxiety disorder
ADHD
Vitamin B12 deficiency
Diet: As tolerated
Activity: As tolerated
Driving Restrictions: As prior to admission
Bathing Restrictions: None
Referrals:
Jonah Randolph MD [Family Provider] - in less than 1 week
Corrina Hannon MD [Active] - in three to four weeks
Prescriptions:
New
cyanocobalamin (vitamin B-12) 1,000 mcg Tablet
1,000 mcg PO DAILY Qty: 30 0RF
Continued
ondansetron HCl 8 mg tablet
8 mg PO Q8H PRN (Reason: nausea/vomiting)
famotidine 20 mg tablet
20 mg PO DAILY
norgestimate-ethinyl estradiol 0.18/0.215/0.25 mg-35 mcg (28) tablet
1 tab PO DAILY
hydroxyzine pamoate 25 mg capsule
25 mg PO HS PRN (Reason: insomnia)
escitalopram oxalate 20 mg tablet
20 mg PO DAILY
dexmethylphenidate 20 mg capsule,ER biphasic 50-50
20 mg PO DAILY
Patient Comments:
07/19/2023: last filled 06/21/23, 30 tabs for 30 days from [id number]
Discharge Orders:
Discharge Patient (As Directed); Ordered 07/21/23
Ordered By: Warner Darden
Discharge Date and Time
Discharge Date/Time: 07/21/23 11:29
--- NOTE | 2023-07-21 11:21 | CM ---
Reviewed the chart notes and spoke with the patient. Patient to be discharged to home today. Patient's mother to provide transportation. CM continues to be available to patient/family and is monitoring medical plan for needs at discharge.
Plan: Discharge home today.
[2023-07-22 23:19] LABS: Intrinsic Factor Blocking Ab Negative (Negative)
== END 2023-07-21 11:29 | disposition home or self-care (01) | DRG 641 ==
LOC: 2 SOUTH 20:39
PROVIDERS: Emergency Medicine; Internal Medicine; Physician Assistant; ADMITTING PHYSICIAN Student in an Organized Health Care Education/Training Program; ATTENDING PHYSICIAN Internal Medicine; CONSULT PHYSICIAN Psychiatry & Neurology Neurology; EMERGENCY PHYSICIAN Emergency Medicine; FAMILY PHYSICIAN Internal Medicine
DX: E53.8 Deficiency of other specified B group vitamins (principal); R55 Syncope and collapse; F90.9 Attention-deficit hyperactivity disorder, unspecified type; F32.9 Major depressive disorder, single episode, unspecified; F41.1 Generalized anxiety disorder; G43.109 Migraine with aura, not intractable, without status migrainosus; R29.2 Abnormal reflex; G47.00 Insomnia, unspecified; H53.8 Other visual disturbances; F12.90 Cannabis use, unspecified, uncomplicated; Z91.040 Latex allergy status; Z11.52 Encounter for screening for COVID-19
CPT/HCPCS: 70551; 72141; 80048; 80053; 80306; 81003; 82550; 82607; 82746; 83735; 84100; 84443; 84703; 85025; 85027; 86340; 87502; 87811; 93005; 96360; 97161; 97165; 97530; 99284

== ENCOUNTER 2023-08-02 08:21 | Emergency (ER) | payer BC, SELFPAY ==
[2023-08-02] VITALS (8 sets, daily range): BP systolic 109–128; BP diastolic 75–85; PULSE 69–72
--- NOTE | 2023-08-02 09:21 | ED.GENMED ---
History of Present Illness
General
Chief Complaint: Fainting Sensation
Source: patient
Exam Limitations: none
Time Seen by Provider: 08/02/23 08:54
Nursing documentation reviewed up to this point in time: agreed with
Travel History
Have you had any contact with someone who has COVID-19?: No
Do you have any symptoms of coronavirus? Fever > 100 degrees, chills, cough, shortness of breath, sore throat, loss of taste or smell, muscle aches, or headache?: No
History of Present Illness
History of Present Illness:
The patient is a 27-year-old female who was recently admitted for generalized weakness of her arms and legs and a feeling of dissociation. During her admission, patient underwent a MRI of her brain and cervical spine that showed no abnormalities.
She was found to be deficient in vitamin B12 and was discharged. Patient reports that she has been feeling well since then until today when her symptoms started coming back. Patient reports that she feels slightly lightheaded, weak in her arms and
legs bilaterally, and feels as though her brain is not connected to her body. Patient denies all fever, chills, headache, cough. She reports she does have a mild sore throat. Patient reports she had mono this past March. Patient reports that
her knees buckled earlier today and she fell. She reports she did not hit her head. She denies any pain from the falls. She did not lose consciousness.
Past History
Past History
ED Past Medical History: Psychiatric (Anxiety/depression)
ED Past Surgical History: None
Social History
Tobacco: Non-smoker
Alcohol: Occasional
Drug: None
Personal: Other
Living: with family
Employment: Employed
Family History
Family History: Other
Review of Systems
Review of Systems
Allergies reviewed?: Yes
All Other Systems: ROS reviewed and negative except as documented in HPI and ROS
Constitutional: Reports fatigue
EENT: Reports sore throat
Respiratory: Reports no symptoms
Cardiac: Reports other (Presyncopal)
ABD/GI: Reports no symptoms
: Reports no symptoms
Musculoskeletal: Reports no symptoms
Skin: Reports no symptoms
Neurological: Reports no symptoms
Endocrine: Reports no symptoms
Hematologic/Lymphatic: Reports no symptoms
Psychiatric: Reports no symptoms
Phy Exam
Physical Exam
Physical Exam:
Physical Exam
General: no apparent distress, not acutely ill. Well, conversational, comfortable
Neck: supple. no meningeal signs. normal psoterior pharynx. No pharyngeal erythema or exudate. No cervical lymphadenopathy
Heart: s1/s2 regular rate and rhythm, no murmur. equal radial pulses.
Lungs: no acute respiratory distress. clear bilaterally
Abdomen: Soft, nontender
Neuro: alert and oriented. no focal neurological deficits. 5 out of 5 strength in all extremities. Cranial nerves appear equal and symmetric bilaterally. Patient able to get up out of bed and walk steadily.
Skin: no rash
Psychiatric: well kept. interactive and cooperative
Extremities: no edema. no calf tenderness. negative homans. good distal pulses
Course
Orders/Labs/Results
Orders:
Orders
08/02/23 08:30
Electrocardiogram (*1) Urgent
Reason for Study: Other
Other Reason for Exam: near faint
08/02/23 08:31
EKG- Treatment ONCE
08/02/23 09:39
Orthostatic VS- Treatment ONCE
Test Result ONCE
08/02/23 09:50
Complete Blood Count/With Diff Urgent
Comprehensive Metabolic Panel Urgent
HCG, Serum Qualitative Screen Urgent
Abnormal Lab Results
08/02/23
09:50
WBC 3.8 L 10^3/uL
(4.8-10.8)
RBC 3.99 L 10^6/uL
(4.20-5.40)
Hct 34.0 L %
(37.0-47.0)
MPV 10.7 H fL
(7.4-10.4)
08/02/23 09:50
08/02/23 09:50
Vital Signs
Initial and Last Documented VS:
Initial Vital Signs
Temp Pulse Resp BP Pulse Ox
99.1 F 68 16 126/84 98
08/02/23 08:27 08/02/23 08:27 08/02/23 08:27 08/02/23 08:27 08/02/23 08:27
Last Documented Vital Signs
Temp Pulse Resp BP Pulse Ox
99.1 F 69 17 113/77 100
08/02/23 08:27 08/02/23 12:00 08/02/23 12:00 08/02/23 12:00 08/02/23 12:00
MDM/Problems Addressed
Differential Diagnosis Includes:
Dehydration, orthostatic hypotension, anemia, viral illness, Guillain-Esquivel�
MDM/Problems Addressed:
Patient presents with acute on chronic bilateral upper and lower extremity weakness and fatigue
*Pulse Oximetry
Patient hypoxic: no
*EKG
Interpreted by ED Provider?: Yes
Interpretation: normal
Comparison EKG: no changes
Rate: normal
Rhythm: sinus
[place]: normal axis
Interval: normal interval
QRS Pattern: normal QRS
Ischemia: no ischemia
*Retread Mold Operator Interpretation
Rate: normal
Interpretation: normal
Rhythm: sinus
*Critical Care Note
Total Time (30-74mins, 75-104mins- exclusive of procedures): Not Applicable
Data Reviewed
Review of Other/Old Records Reveals: Discharge Summary (Reviewed discharge summary from hospitalist from 07/21/23 which shows that patient was admitted for hyperreflexia and had a normal MRI brain and C-spine and was given B12 supplement)
Patient Management
Social determinants of health affecting care: Living situation and Strong social support
Discussion with other providers: Other (Neurology, Dr Erik Hull, came to evaluate the patient at bedside. He felt patient had an intact and normal neurological exam. His leading diagnosis at this time is conversion disorder. He did explain
symptoms to the patient)
Escalation/DeEscalation of care consider admission/obs:
Patient remains well and comfortable appearing. She appears well-perfused and has excellent strength in upper and lower extremities. There is no sign of pharyngitis on exam. There is no sign of cauda equina, as patient is up walking around.
There are no electrolyte abnormalities to suggest significant dehydration. Her orthostatic vital signs were normal, thus, she did not need IV fluids.
ED Attending Note
-
Portions of this chart may have been created with voice recognition software.� Occasional wrong word or��sound alike� substitutions may have occurred due to the inherent limitations of voice recognition software.
Discharge Plan
Departure
Patient Disposition: Home (Routine Discharge)
Date of Disposition: 08/02/23
Time of Disposition: 12:56
Patient with high blood pressure during this ER visit?: No
Condition: Good
Covid-19: Not Applicable
Discharge Problem:
Generalized weakness
Instructions: Generalized Weakness
Prescriptions:
No Action
ondansetron HCl 8 mg tablet
8 mg PO Q8H PRN (Reason: nausea/vomiting)
famotidine 20 mg tablet
20 mg PO DAILY
norgestimate-ethinyl estradiol 0.18/0.215/0.25 mg-35 mcg (28) tablet
1 tab PO DAILY
hydroxyzine pamoate 25 mg capsule
25 mg PO HS PRN (Reason: insomnia)
escitalopram oxalate 20 mg tablet
20 mg PO DAILY
dexmethylphenidate 20 mg capsule,ER biphasic 50-50
20 mg PO DAILY
Patient Comments:
07/19/2023: last filled 06/21/23, 30 tabs for 30 days from [facility]#[id number]
cyanocobalamin (vitamin B-12) 1,000 mcg Tablet
1,000 mcg PO DAILY Qty: 30 0RF
Referrals:
Cosmo Hull MD [Active] - (Call to schedule the next open appointment)
Kelvin Quintana MD [Family Provider] -
Activity Restrictions/Additional Instructions:
Please call and follow-up with neurology. Please call physical therapy to schedule an appointment as well. To schedule an appointment for physical therapy, please call is [phone]
Interventions
Interventions:
*General Assessment Last Done: 08/02/23 09:07
*Neglect/Abuse Screening Last Done: 08/02/23 09:07
ED- Fall Risk Assessment Last Done: 08/02/23 09:07
*ED COVID-19 Vaccine History Last Done: 08/02/23 08:27
ED- Cardiac Assessment Last Done: 08/02/23 09:07
ED- Neurological Assessment Last Done: 08/02/23 09:07
[2023-08-02 10:09] LABS: % Basophils 0.3 % (0-2); % Eosinophils 0.3 % (0-6); % Immature Granulocytes 0.3 % (0-0.5); % Lymphocytes 31.9 % (20.5-51.1); % Monocytes 6.3 % (1.7-9.3); % Neutrophils 60.9 % (42.2-75.2); Absolute Lymphocytes 1.2 10^3/uL (1.2-3.4); Absolute Monocytes 0.2 10^3/uL (0.1-0.6); Absolute Neutrophils 2.3 10^3/uL (1.4-6.5); Hemoglobin 12.1 g/dL (12.0-16.0); Mean Corp Hgb Conc. 35.6 g/dL (33.0-37.0); Mean Corpuscular Hgb 30.3 pg (27.0-31.0); Mean Corpuscular Volume 85.2 fL (81.0-99.0); Mean Platelet Volume 10.7 fL (7.4-10.4); Nucleated Red Blood Cells % 0 %; Platelet Count 201 10^3/uL (130-400); Red Blood Cell Count 3.99 10^6/uL (4.20-5.40); Red Cell Dist. Width 12.6 % (11.5-14.5); White Blood Cell Count 3.8 10^3/uL (4.8-10.8)
[2023-08-02 10:25] LABS: HCG, Serum Qualitative Screen Negative
[2023-08-02 10:27] LABS: ALT (SGPT) 19 U/L (0-35); AST (SGOT) 22 U/L (14-36); Albumin 3.9 g/dl (3.5-5.0); Alkaline Phosphatase 65 U/L (38-126); Blood Urea Nitrogen 7 mg/dl (7-17); Calcium 8.7 mg/dl (8.4-10.2); Carbon Dioxide 25 mmol/L (22-30); Chloride 107 mmol/L (98-107); Glucose 96 mg/dl (70-99); Potassium 3.9 mmol/L (3.5-5.1); Sodium 137 mmol/L (135-145); Total Bilirubin 0.7 mg/dl (0.2-1.3); Total Protein 6.4 g/dl (6.3-8.2); eGFR > 60.00
--- NOTE | 2023-08-02 12:45 | CON.NEURO4 ---
Consultation - Neurology 4
-
CONSULTING PHYSICIAN: Alanis Hull
REFERRING PHYSICIAN: ER
DICTATED BY: Alanis Hull
DATE/TIME OF REQUEST: 08/02/23
DATE/TIME OF CONSULTATION: 08/02/23
Reason for Consultation: Episodes of weakness, dizziness, fatigue
History of Present Illness:
The patient is a 27-year-old right-handed woman with a past medical history of ADHD and anxiety presenting the hospital because of recurrent episodes similar to previous episodes of generalized weakness and fatigue and some lightheadedness.
She had had a recent hospitalization her atorvastatin on 07/19 problem which had started rather abruptly in the day shortly before hospitalization. The episodes are described as lasting anywhere from 30 minutes to a few hours long, has a feeling of
fogginess and perhaps some blurred vision along with dizziness and a feeling of generalized weakness. In the past it seemed that she had there have been some degree of a disconnection from body. The episodes are not painful there is no head or
neck pain or paresthesia speech difficulty or loss of consciousness or abnormal movements or tremor. They can happen while seated, laying down or standing. No obvious provoking factors. She had had not had any traumatic injuries, or known
illnesses before the symptoms started. She had had MRI of the brain and cervical spine without contrast here in the hospital and was discharged and did feel improved over the next couple days to about a week but then was concerned that the symptoms
recurred.
She has not had any bowel or bladder function changes denies any urinary retention bowel or bladder incontinence.
She does describe migraines several times a months these are characterized by nausea, photophobia and phonophobia.
No recent medication changes. No history of Lyme disease, rashes or tick bites.
Was recently engaged this past Monday.
Past Medical History: ADHD, anxiety/depression
Surgical History: Bovey teeth removal
Family History: Strong family history of migraines, her identical twin sister and mother have them. No family history of other neurologic disorders or ataxias. Grandmother has a tremor.
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
Allergies: Latex, no known drug allergies
Review of Symptoms:
Patient denies any fever, headache, chest pain, shortness of breath, GI or symptoms.
Physical Exam:
Well-appearing young woman no signs of distress, well-nourished well-groomed, no signs of head or neck trauma, neck supple full range of motion no neck masses oropharynx is clear moist mucous membranes eyes are clear, heart rate regular, breathing
unlabored, abdomen soft nontender, no lower extremity rash or joint deformity.
Neurologic Examination:
The patient is awake, alert and oriented x 3. She is able to follow commands and answer questions appropriately. Good historian. Calm and cooperative. There is no aphasia or dysarthria. On cranial nerve assessment, pupils are 3 mm bilateral, round
and reactive to light and accommodation. Visual [place] are full. Extraocular movements are intact. Facial sensations are intact and bilaterally symmetrical, there is no facial asymmetry. Hearing is intact bilaterally to normal conversation volume.
Tongue palate and uvula are midline. Sternocleidomastoid strengths are full bilaterally. Normal muscle bulk and tone no abnormal movements or tremors noted. No muscle atrophy. Shows some inconsistent collapsing weakness to shoulder abduction
testing, shoulder abduction arm flexion and extension wrist extension flexion/abduction/abduction, knee extension ankle dorsiflexion and plantarflexion 5/5 bilaterally. Reflexes are 3+ and symmetric in biceps triceps brachioradialis, 4+ with
nonsustained clonus at the patella and 4+ in the Achilles with nonsustained clonus bilaterally, Jacinto's present bilaterally in the hands. Sensations of pinprick, light touch, proprioception, and vibration are intact and bilaterally symmetrical.
There was no extinction noted on double simultaneous stimulation. Coordination is intact by finger to nose bilaterally.
Neuro Imaging:
I reviewed images from previous brain and C-spine MRI without contrast.
Brain MRI does not show any acute infarct or chronic infarcts no findings suggestive of demyelinating disease no hydrocephalus no masses or edema.
Cervical spine with no significant cord compression or stenosis or intrinsic spinal cord signal abnormality.
Impressions
1. Episodes of dizziness and generalized weakness and fatigue which started abruptly, had an improving course and then had some more recent symptoms which were concerning to the patient. 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
neurologic disorder. 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 No concern for epileptic seizures given the time duration,
doubtful these are a migraine equivalent.
2. Hyperreflexia is likely a baseline for this young healthy patient, reflexes are brisk throughout but symmetric and the normal brain MRI and C spine along with no other manifestations of upper motor neuron lesions or neuromuscular abnormalities
indicate the hyperreflexia is very likely benign.
3. Frequent marijuana use
4. Migraine headaches without aura
5. ADHD
6. Generalized anxiety
Recommendations:
1. Would pursue outpatient physical therapy a couple of days a week
2. Will need outpatient neurology follow-up, in general can arrange for a hospital follow-up 4 to 6 weeks after her discharge from her most recent hospitalization
3. Do not feel there would be any further diagnostic testing necessary within the inpatient or outpatient realms
4. Educated on functional neurologic disorder and that she may still have some symptoms that come and go but that it is treatable
5. As outpatient should consider treatments to improve migraine frequency and severity of the acute episodes
6. Importance of stress management
Call with questions and concerns
Discussed patient care with: Patient and her father, Dr Castellanos of the ER
== END 2023-08-02 13:36 | disposition home or self-care (01) ==
LOC: EMR 08:21
PROVIDERS: EMERGENCY PHYSICIAN Emergency Medicine; FAMILY PHYSICIAN Family Medicine; OTHER PHYSICIAN Student in an Organized Health Care Education/Training Program
DX: R53.1 Weakness (principal); R53.83 Other fatigue; R42 Dizziness and giddiness; F44.9 Dissociative and conversion disorder, unspecified; W19.XXXA Unspecified fall, initial encounter
CPT/HCPCS: 99284; 80053; 84703; 85025; 93005

== ENCOUNTER → 2023-12-21 08:13 | Outpatient (REF) | payer BC, SELFPAY | LOC: WDC 08:13 | PROVIDERS: ATTENDING PHYSICIAN Advanced Practice Midwife; FAMILY PHYSICIAN Family Medicine | DX: N63.10 Unspecified lump in the right breast, unspecified quadrant (principal); N63.12 Unspecified lump in the right breast, upper inner quadrant | CPT/HCPCS: 76642 ==

== ENCOUNTER → 2024-01-03 07:45 | Outpatient (REF) | payer BC, SELFPAY | LOC: RAD 07:45 | PROVIDERS: ATTENDING PHYSICIAN Internal Medicine Gastroenterology | DX: R11.0 Nausea (principal) | CPT/HCPCS: 78264; A9541 ==

== ENCOUNTER 2024-02-29 18:02 | Emergency (ER) | payer BC, SELFPAY ==
[2024-02-29 18:07] VITALS: BP 121/87
--- NOTE | 2024-02-29 19:24 | ED.GENMED ---
History of Present Illness
General
Chief Complaint: Cough
Source: patient
Exam Limitations: none
Time Seen by Provider: 02/29/24 19:08
History of Present Illness
History of Present Illness:
this is a 28 year old female that comes in with c/o chest pain. Patient states that she went to [facility] as she has had a virus for the past 5 days. States that for the past 2-3 days she felt like there was a lot of mucous in her chest and then
this morning she awoke with chest pain. States that she felt SOB with the chest pain. States that she has no chest pain at this time but was told by [facility] to come to the ER. States that she has a headache and was told that she had
Bronchitis. Denies any fever, chills, chest pain, abd pain, nausea, vomiting, diarrhea, dizziness, urinary burning.
Past History
Past History
ED Past Medical History: Asthma, GERD, Psychiatric (Anxiety/depression) and Other (Migraines, Insomnia, UTI, ADHD, IBS)
ED Past Surgical History: None
Social History
Tobacco: Non-smoker
Alcohol: Occasional
Drug: Marijuana
Personal: Single (Engaged)
Living: with family
Employment: Employed
Family History
Family History: Other
Review of Systems
Review of Systems
All Other Systems: ROS reviewed and negative except as documented in HPI and ROS
Constitutional: Reports no symptoms; Denies fever or chills
EENT: Reports no symptoms
Respiratory: Reports cough and trouble breathing
Cardiac: Denies chest pain (Had chest discomfort this morning)
ABD/GI: Reports no symptoms; Denies abdominal pain, nausea, vomiting or diarrhea
: Reports no symptoms; Denies dysuria, frequency or urgency
Musculoskeletal: Reports no symptoms
Skin: Reports no symptoms
Neurological: Reports headache; Denies dizzy
Psychiatric: Reports no symptoms
Phy Exam
General Physical Exam
General Presentation: well appearing and no apparent distress
General age: appears stated age
General Skin: warm and dry
General Habitus: normal
General Mental: alert
General Hydration: appears well hydrated
ENT Exam
ENT Exam: TM's normal, pharynx normal and neck supple
Eye Exam
Eye Exam: EOMI
Cardiovascular Exam
Cardiovascular Exam: regular rate/rhythm, no edema and normal peripheral pulses
Pulmonary Exam
Pulmonary Exam: lungs clear, no respiratory distress, no rales, chest non tender, no crackles, no rhonchi, no wheezing and no cough
Gastrointestinal Exam
Gastrointestinal Exam: normal bowel sounds, non tender, soft, no organomegaly, no pulsatile mass and non distended
Musculoskeletal Exam
Musculoskeletal Exam: full ROM and no edema
Skin Exam
Skin Exam: normal color, warm/dry and no rash
Course
Orders/Labs/Results
Orders:
Orders
02/29/24 18:06
Electrocardiogram (*1) Urgent
Reason for Study: Abnormal EKG
EKG- Treatment ONCE
02/29/24 19:23
Test Result ONCE
02/29/24 19:42
Complete Blood Count/With Diff Urgent
Comprehensive Metabolic Panel Urgent
HCG, Serum Qualitative Screen Urgent
Troponin I Urgent
Abnormal Lab Results
02/29/24
19:42
Hct 35.3 L %
(37.0-47.0)
02/29/24 19:42
02/29/24 19:42
Labs unremarkable. Troponin <0.012, HCG negative
Vital Signs
Initial and Last Documented VS:
Initial Vital Signs
Temp Pulse Resp BP Pulse Ox
98.3 F 74 18 121/87 98
02/29/24 18:07 02/29/24 18:07 02/29/24 18:07 02/29/24 18:07 02/29/24 18:07
Last Documented Vital Signs
Temp Pulse Resp BP Pulse Ox
98.3 F 74 18 121/87 99
02/29/24 18:07 02/29/24 18:07 02/29/24 18:07 02/29/24 18:07 02/29/24 19:21
MDM/Problems Addressed
Differential Diagnosis Includes:
Viral syndrome, Bronchitis
MDM/Problems Addressed:
This is a 28 year old female that comes in with c/o viral syndrome. States that she went to [facility] and she was told that she had Bronchitis. States that she told them that she had some chest discomfort in the moring and she was told that her
ECG was abnormal to come to the ER. Chest X-ray was done there and this was normal.
Will check labs, ECG
back into see patient. Explained that her blood work is normal along with the Troponin. This was most likely due to her Bronchitis and asthma. Patient to use her inhalers as needed. Increase her water intake to 8-8oz glasses daily. Follow up with
the family doctor as needed. Return with any concerns.
Chronic conditions affecting care: Asthma
Acute Exacerbation and/or Progression of Chronic Illness: Asthma
*Pulse Oximetry
Patient hypoxic: no
*EKG
Interpreted by ED Provider?: Yes
Heart Rate: 74
Rate: normal
Rhythm: sinus
[place]: normal axis
Interval: normal interval
QRS Pattern: normal QRS
Ischemia: T-wave inversion (III, aVR, V1, V2, )
*Network Security Engineer Interpretation
Rate: Network Security Engineer- N/A
*Critical Care Note
Total Time (30-74mins, 75-104mins- exclusive of procedures): Not Applicable
ED Attending Note
-
Portions of this chart may have been created with voice recognition software.� Occasional wrong word or��sound alike� substitutions may have occurred due to the inherent limitations of voice recognition software.
Discharge Plan
Departure
Patient Disposition: Home (Routine Discharge)
Date of Disposition: 02/29/24
Time of Disposition: 20:23
Patient with high blood pressure during this ER visit?: No
Condition: Good
Covid-19: Not Applicable
Discharge Problem:
Acute viral syndrome
Instructions: Viral Upper Respiratory Infection, Adult (DC)
Prescriptions:
No Action
ondansetron HCl 8 mg tablet
8 mg PO Q8H PRN (Reason: nausea/vomiting)
famotidine 20 mg tablet
20 mg PO DAILY
norgestimate-ethinyl estradiol 0.18/0.215/0.25 mg-35 mcg (28) tablet
1 tab PO DAILY
hydroxyzine pamoate 25 mg capsule
25 mg PO HS PRN (Reason: insomnia)
escitalopram oxalate 20 mg tablet
20 mg PO DAILY
dexmethylphenidate 20 mg capsule,ER biphasic 50-50
20 mg PO DAILY
Patient Comments:
07/19/2023: last filled 06/21/23, 30 tabs for 30 days from [facility]#[id number]
cyanocobalamin (vitamin B-12) 1,000 mcg Tablet
1,000 mcg PO DAILY Qty: 30 0RF
Referrals:
NONE,* [Family Provider] -
Activity Restrictions/Additional Instructions:
As discussed, your blood work is all normal. This is most likely a viral syndrome and will get better on its own. Please increase your water intake to 8-8oz glasses daily. Follow up with the family doctor for recheck. IF YOU HAVE ANY OTHER CONCERNS
PLEASE RETURN TO THE EMERGENCY ROOM.
Interventions
Interventions:
*Risk Screen - Suicide Last Done: 02/29/24 18:07
*General Assessment Last Done: 02/29/24 19:21
*Neglect/Abuse Screening Last Done: 02/29/24 18:07
*ED COVID-19 Vaccine History Last Done: 02/29/24 19:21
ED- Pulmonary Assessment Last Done: 02/29/24 19:21
Discharge Date and Time
Print Language: [id number]
[2024-02-29 19:52] LABS: % Basophils 0.3 % (0-2); % Eosinophils 0.5 % (0-6); % Immature Granulocytes 0.3 % (0-0.5); % Lymphocytes 34.5 % (20.5-51.1); % Monocytes 8.1 % (1.7-9.3); % Neutrophils 56.3 % (42.2-75.2); Absolute Lymphocytes 2.3 10^3/uL (1.2-3.4); Absolute Monocytes 0.5 10^3/uL (0.1-0.6); Absolute Neutrophils 3.7 10^3/uL (1.4-6.5); Hematocrit 35.3 % (37.0-47.0); Hemoglobin 12.7 g/dL (12.0-16.0); Mean Corpuscular Hgb 30.2 pg (27.0-31.0); Mean Platelet Volume 9.9 fL (7.4-10.4); Nucleated Red Blood Cells % 0 %; Platelet Count 286 10^3/uL (130-400); Red Cell Dist. Width 11.9 % (11.5-14.5); White Blood Cell Count 6.6 10^3/uL (4.8-10.8)
[2024-02-29 19:58] LABS: HCG, Serum Qualitative Screen Negative
[2024-02-29 20:02] LABS: ALT (SGPT) 22 U/L (0-35); AST (SGOT) 28 U/L (14-36); Albumin 4.5 g/dl (3.5-5.0); Alkaline Phosphatase 63 U/L (38-126); Blood Urea Nitrogen 9 mg/dl (7-17); Calcium 9.2 mg/dl (8.4-10.2); Carbon Dioxide 22 mmol/L (22-30); Chloride 105 mmol/L (98-107); Glucose 87 mg/dl (70-99); Potassium 3.5 mmol/L (3.5-5.1); Sodium 144 mmol/L (135-145); Total Bilirubin 0.5 mg/dl (0.2-1.3); Total Protein 7.2 g/dl (6.3-8.2); eGFR > 60.00
[2024-02-29 20:13] LABS: Troponin I < 0.012 ng/ml
== END 2024-02-29 20:38 | disposition home or self-care (01) ==
LOC: EMR 18:02
PROVIDERS: Clinical Nurse Specialist Family Health; EMERGENCY PHYSICIAN Emergency Medicine
DX: B34.9 Viral infection, unspecified (principal); R05.9 Cough, unspecified; J45.909 Unspecified asthma, uncomplicated; K21.9 Gastro-esophageal reflux disease without esophagitis; F41.8 Other specified anxiety disorders; G47.00 Insomnia, unspecified; F90.9 Attention-deficit hyperactivity disorder, unspecified type; K58.9 Irritable bowel syndrome, unspecified
CPT/HCPCS: 99283; 80053; 84484; 84703; 85025; 93005

== ENCOUNTER → 2024-09-02 13:18 | Outpatient (REF) | payer BC, SELFPAY | LOC: HWRAD 13:18 | PROVIDERS: ATTENDING PHYSICIAN Obstetrics & Gynecology; FAMILY PHYSICIAN Family Medicine | DX: R10.2 Pelvic and perineal pain (principal) | CPT/HCPCS: 76856 ==